=== PATIENT | female | born 1975 | race Caucasian/White ===

== ENCOUNTER 2018-05-04 11:09 | Inpatient (IN) | payer MEDICAID ==
[2018-05-04] MEDS: ONDANSETRON 4 MG INJ IV ×2 (13:11→19:56)
[2018-05-04] MEDS: morphine 4 MG/ML VIAL IV (13:11)
[2018-05-04] MEDS: FAMOTIDINE 20 MG INJ IV (13:11)
[2018-05-04 13:19] LABS: ADD MAN DIFF? NO
[2018-05-04 13:20] LABS: BASOPHILS % 0.3 % (0.0-2.0); EOSINOPHILS # 0.2 10^3/ul (0.0-0.5); EOSINOPHILS % 1.4 % (0.0-7.0); HEMATOCRIT 38.7 % (37.0-47.0); HEMOGLOBIN 12.4 g/dl (12.0-16.0); LYMPHOCYTES # 3.4 10^3/ul (0.8-2.9); LYMPHOCYTES % 31.1 % (15.0-51.0); MEAN CORPUSCULAR HEMOGLOBIN 24.4 pg (29.0-33.0); MEAN PLATELET VOLUME 11.6 fl (7.4-10.4); MONOCYTE # 0.4 10^3/ul (0.3-0.9); NEUTROPHIL # 6.9 10^3/ul (1.6-7.5); NEUTROPHILS % 62.9 % (39.0-77.0); PLATELET COUNT 296 10^3/UL (140-415); RED BLOOD COUNT 5.09 10^6/ul (4.20-5.40); RED CELL DISTRIBUTION WIDTH 15.1 % (11.5-14.5)
[2018-05-04 13:28] LABS: ADD UMIC YES; UR ASCORBIC ACID NEGATIVE (NEGATIVE); UR BACTERIA FEW /HPF (NONE SEEN); UR BILIRUBIN (Dip) NEGATIVE (NEGATIVE); UR BLOOD (Dip) 1+ mg/dL (NEGATIVE); UR CLARITY SLIGHTLY CLOUDY (CLEAR); UR COLOR STRAW (YELLOW); UR GLUCOSE (Dip) 3+ mg/dL (NEGATIVE); UR KETONES (Dip) NEGATIVE (NEGATIVE); UR LEUKOCYTE ESTERASE (Dip) TRACE Leu/ul (NEGATIVE); UR NITRITE (Dip) NEGATIVE (NEGATIVE); UR RBC 2 /HPF (0-5); UR SPECIFIC GRAVITY (Dip) 1.017 (1.003-1.030); UR SQUAMOUS EPITHELIAL CELL FEW /HPF (FEW); UR TOTAL PROTEIN (Dip) 1+ mg/dl (NEGATIVE); UR UROBILINOGEN (Dip) NEGATIVE (NEGATIVE); UR WBC 5 /HPF (0-5)
[2018-05-04 13:39] LABS: ALANINE AMINOTRANSFERASE 59 IU/L (13-69); ALBUMIN 3.9 g/dl (3.3-4.9); ALBUMIN/GLOBULIN RATIO 0.86; ALKALINE PHOSPHATASE 82 IU/L (42-121); ANION GAP 15 (8-16); ASPARTATE AMINO TRANSFERASE 46 IU/L (15-46); BILIRUBIN,INDIRECT 0.3 mg/dl (0-1.1); BILIRUBIN,TOTAL 0.3 mg/dl (0.2-1.3); BLOOD UREA NITROGEN 17 mg/dl (7-20); CALCIUM 9.8 mg/dl (8.4-10.2); CARBON DIOXIDE 26 mmol/L (21-31); CHLORIDE 101 mmol/L (97-110); CREATININE 0.57 mg/dl (0.44-1.00); GLUCOSE 247 mg/dl (70-220); LIPASE 44 U/L (23-300); POTASSIUM 3.9 mmol/L (3.5-5.1); SODIUM 138 mmol/L (135-144); TOTAL PROTEIN 8.4 g/dl (6.1-8.1)
[2018-05-04] MEDS: SOD CHLORIDE 0.9% 1,000 ML IV (14:21)
[2018-05-04] MEDS: IOHEXOL 100 ML (14:37)
[2018-05-04] MEDS: IOHEXOL 300MG/ML 30 ML BTL (14:37)
[2018-05-04] MEDS: SOD CHLORIDE 0.9% 100 ML (14:37)
[2018-05-04] MEDS ORDERED: ACETAMINOPHEN 325 MG TAB PO (16:00)
[2018-05-04] MEDS ORDERED: IBUPROFEN 600 MG TAB PO (18:30)
[2018-05-04] MEDS ORDERED: NACL 0.9% 3 ML SYG IV (18:30)
[2018-05-04] MEDS ORDERED: HYDROCODONE/APAP (5/325) TAB PO (18:30)
[2018-05-04] MEDS: HYDROmorphONE 0.5 MG/0.5 ML SYG IV (19:57)
[2018-05-04] MEDS: FAMOTIDINE 20 MG TAB PO (20:56)
[2018-05-05 05:37] LABS: ADD MAN DIFF? NO
[2018-05-05 05:40] LABS: BASOPHILS % 0.3 % (0.0-2.0); EOSINOPHILS # 0.1 10^3/ul (0.0-0.5); EOSINOPHILS % 0.9 % (0.0-7.0); HEMATOCRIT 37.4 % (37.0-47.0); HEMOGLOBIN 12.1 g/dl (12.0-16.0); LYMPHOCYTES # 3.7 10^3/ul (0.8-2.9); LYMPHOCYTES % 30.2 % (15.0-51.0); MEAN CORPUSCULAR HEMOGLOBIN 24.8 pg (29.0-33.0); MEAN CORPUSCULAR HGB CONC 32.4 g/dl (32.0-37.0); MEAN CORPUSCULAR VOLUME 76.8 fl (82.0-101.0); MEAN PLATELET VOLUME 12.3 fl (7.4-10.4); MONOCYTE # 0.4 10^3/ul (0.3-0.9); MONOCYTES % 3.6 % (0.0-11.0); NEUTROPHILS % 64.7 % (39.0-77.0); PLATELET COUNT 297 10^3/UL (140-415); RED BLOOD COUNT 4.87 10^6/ul (4.20-5.40); RED CELL DISTRIBUTION WIDTH 15.4 % (11.5-14.5)
[2018-05-05 05:40] LABS: WHITE BLOOD COUNT 12.4 10^3/ul (4.8-10.8)
[2018-05-05 05:59] LABS: INR 0.98; PROTIME 13.1 Sec (11.9-14.9)
[2018-05-05 06:20] LABS: ALANINE AMINOTRANSFERASE 58 IU/L (13-69); ALBUMIN 3.7 g/dl (3.3-4.9); ALBUMIN/GLOBULIN RATIO 0.92; ALKALINE PHOSPHATASE 79 IU/L (42-121); ANION GAP 17 (8-16); ASPARTATE AMINO TRANSFERASE 59 IU/L (15-46); BILIRUBIN,INDIRECT 0.5 mg/dl (0-1.1); BILIRUBIN,TOTAL 0.5 mg/dl (0.2-1.3); BLOOD UREA NITROGEN 13 mg/dl (7-20); CALCIUM 9.1 mg/dl (8.4-10.2); CARBON DIOXIDE 26 mmol/L (21-31); CHLORIDE 102 mmol/L (97-110); CREATININE 0.57 mg/dl (0.44-1.00); GLUCOSE 156 mg/dl (70-220); POTASSIUM 4.1 mmol/L (3.5-5.1); SODIUM 141 mmol/L (135-144); TOTAL PROTEIN 7.7 g/dl (6.1-8.1)
[2018-05-05] MEDS ORDERED: LIDOCAINE 2% (SDV) 5 ML INJ (07:00)
[2018-05-05 07:26] LABS: CANCER ANTIGEN 125 9.4 U/ml (0.0-35.0)
[2018-05-05] MEDS: FAMOTIDINE 20 MG TAB PO ×2 (09:00→20:10)
[2018-05-05] MEDS ORDERED: PROPOFOL 100 ML (10:33)
[2018-05-05] MEDS ORDERED: FENTAnyl 50 MCG/ML VIAL (10:35)
[2018-05-05] MEDS ORDERED: ONDANSETRON 4 MG INJ (11:10)
[2018-05-05] MEDS ORDERED: CEFAZOLIN 1 GM INJ (11:10)
[2018-05-05] MEDS ORDERED: DEXAMETHASONE 4 MG/ML 1 ML INJ (11:10)
[2018-05-05] MEDS ORDERED: MEPERIDINE 25 MG INJ IV (11:30)
[2018-05-05] MEDS ORDERED: KETOROLAC 30 MG INJ IV (11:30)
[2018-05-05] MEDS ORDERED: OXYCODONE/ACETAMINOPHEN (5/325) TAB PO ×2 (11:30)
[2018-05-05] MEDS ORDERED: MIDAZOLAM 1 MG/ML 2 ML INJ IV (11:30)
[2018-05-05] MEDS ORDERED: ONDANSETRON 4 MG INJ IV ×2 (11:30→12:30)
[2018-05-05] MEDS ORDERED: ALBUTEROL 0.083% (NEB) 2.5 MG/3 ML AMP HHN (11:30)
[2018-05-05] MEDS ORDERED: EPHEDrine SULFATE 50 MG/5 ML SYG IV (11:30)
[2018-05-05] MEDS ORDERED: FENTAnyl 50 MCG/ML VIAL IV ×3 (11:30)
[2018-05-05] MEDS ORDERED: HYDROmorphONE 1 MG/5 ML IV SYRINGE IV ×2 (11:30)
[2018-05-05] MEDS ORDERED: DIPHENHYDRAMINE 50 MG INJ IV (11:30)
[2018-05-05] MEDS ORDERED: LABETALOL HCL 20MG INJ IV (11:30)
[2018-05-05] MEDS ORDERED: hydrALAzine 20 MG INJ IV (11:30)
[2018-05-05 12:02] LABS: HEMOGLOBIN A1C 8.9 % (0-5.9)
[2018-05-05 14:22] LABS: LACTATE DEHYDROGENASE 558 IU/L (313-618)
[2018-05-05 14:55] LABS: CANCER ANTIGEN 125 13.2 U/ml (0.0-35.0)
[2018-05-05] MEDS ORDERED: HYDROmorphONE 2 MG TAB PO (15:30)
[2018-05-05 17:43] LABS: CARCINOEMBRYONIC ANTIGEN 2.8 ng/ml (0.0-5.0)
[2018-05-05 17:47] LABS: CANCER ANTIGEN 19-9 31.1 U/ml (0.0-37.0)
[2018-05-05 18:50] LABS: HAAIG REFLEX REFLEX FILED
[2018-05-05 19:35] LABS: HEPATITIS B SURFACE ANTIGEN NEGATIVE (NEGATIVE)
[2018-05-05 19:53] LABS: HEPATITIS B CORE ANTIBODY NEGATIVE (NEGATIVE); HEPATITIS C VIRAL ANTIBODY NEGATIVE (NEGATIVE)
[2018-05-06] MEDS: FAMOTIDINE 20 MG TAB PO ×2 (09:31→20:46)
[2018-05-06 09:40] LABS: HEMOGLOBIN A1C 8.9 % (0-5.9)
[2018-05-07 00:37] LABS: CANCER ANTIGEN 15-3 19 U/mL (<32)
[2018-05-07] MEDS: FAMOTIDINE 20 MG TAB PO (08:47)
[2018-05-07] MEDS: INFLUENZA VIRUS VACCINE 0.5 ML (DISPENSING) IM* (17:16)
== END 2018-05-07 17:36 | disposition home or self-care (01) | DRG 744 ==
LOC: FTE 11:09 → MS1 15:56
PROC: 0UDB8ZX Extraction of Endometrium, Via Natural or Artificial Opening Endoscopic, Diagnostic (ICD-10-PCS; principal; 2018-05-05 10:51)
DX: C54.1 Malignant neoplasm of endometrium (principal); C78.7 Secondary malignant neoplasm of liver and intrahepatic bile duct; E11.9 Type 2 diabetes mellitus without complications; N81.10 Cystocele, unspecified; N81.6 Rectocele; Z79.84 Long term (current) use of oral hypoglycemic drugs
CPT/HCPCS: 74178; 74181; 74182; 76705; 76830; 76856; 80053; 81001; 81025; 82105; 82378; 83036; 83615; 83690; 84702; 85025; 85610; 86300; 86301; 86304; 86704; 86709; 86803; 87340; 88305; 90686